=== PATIENT | female | born 1960 | race Caucasian/White ===

== ENCOUNTER 2017-10-03 08:22 | Emergency (ER) | payer MEDICAID ==
[~2017-10-03] VITALS: Ht 165.1 cm; Wt 75.0 kg
[~2017-10-03 08:22] MED LIST: CIPR-9 PO; OMEP20TA93 PO; PRED1SUS EACH EYE; REFRDRO EACH EYE
[2017-10-03 08:23] VITALS: BP 145/77; PULSE 70; RESP 16; TEMP 97.7; O2SAT 100
--- NOTE | 2017-10-03 09:22 | PD ---
HPI Chief Complaint: Abdominal Pain Time Seen by Provider: 08:57 Travel History International Travel<30 days: No Contact w/Intl Traveler<30days: No Traveled to known affect area: No History of Present Illness HPI 56yo F presents to the ED with c/o left lower abdominal pain since yesterday. Said it is nonradiating and sharp. Also noticed redness around umbilicus. Denies any fever, chest pain, sob, n/v, dysuria, hematuria, diarrhea, focal weakness or numbness. Pt has history of hysterectomy and cholecystectomy. PFSH Past Medical History Diabetes: No Past Surgical History Cholecystectomy: Yes Hysterectomy: Yes Tonsillectomy: Yes Social History Alcohol Use: No Tobacco Use: No Substance Use: No Allergies-Medications (Allergen,Severity, Reaction): Coded Allergies: No Known Allergies (Unverified Adverse Reaction, Unknown, 10/03/17) Reported Meds & Prescriptions Reported Meds & Active Scripts Active Reported Pred Forte Opth 1% (Prednisolone Acetate Opth 1%) 1% Susp 1 Drop EACH EYE DAILY Omeprazole 20 Mg Tab 20 Mg PO DAILY Refresh Opth Drops (Polyvinyl Alcohol-Povidone Opth Drops) 1.4-0.6% Drops 1-2 Drop EACH EYE Q6HR PRN Review of Systems Except as stated in HPI: all other systems reviewed are Neg Physical Exam Narrative GENERAL: 56yo F in mild distress. SKIN: Focused skin assessment warm/dry. HEAD: Atraumatic. Normocephalic. EYES: Pupils equal and round. No scleral icterus. No injection or drainage. CARDIOVASCULAR: Regular rate and rhythm. No murmur appreciated. RESPIRATORY: No accessory muscle use. Clear to auscultation. Breath sounds equal bilaterally. GASTROINTESTINAL: Abdomen soft, +TTP LLQ. No rebound tenderness or guarding. + erythema umbilicus. No fluctuance. MUSCULOSKELETAL: No obvious deformities. No clubbing. No cyanosis. No edema. NEUROLOGICAL: Awake and alert. No obvious cranial nerve deficits. Motor grossly within normal limits. Normal speech. PSYCHIATRIC: Appropriate mood and affect; insight and judgment normal. Data Data Last Documented VS Vital Signs Date Time Temp Pulse Resp B/P (MAP) Pulse Ox O2 Delivery O2 Flow Rate FiO2 10/03/17 08:23 97.7 70 16 145/77 (99) 100 Room Air Orders Orders Complete Blood Count With Diff (10/03/17 09:01) Comprehensive Metabolic Panel (10/03/17 09:01) Lipase (10/03/17 09:01) Prothrombin Time / Inr (Pt) (10/03/17 09:) Act Partial Throm Time (Ptt) (10/03/17 09:) Urinalysis - C+S If Indicated (10/03/17 09:01) Ct Abd/Pel W/O Iv Contrast (10/03/17 09:01) Morphine Inj (Morphine Inj) (10/03/17 11:30) Labs Laboratory Tests Test 10/03/17 09:25 10/03/17 09:29 White Blood Count 8.8 TH/MM3 Red Blood Count 4.40 MIL/MM3 Hemoglobin 13.9 GM/DL Hematocrit 40.5 % Mean Corpuscular Volume 92.2 FL Mean Corpuscular Hemoglobin 31.5 PG Mean Corpuscular Hemoglobin Concent 34.2 % Red Cell Distribution Width 13.5 % Platelet Count 135 TH/MM3 Mean Platelet Volume 8.2 FL Neutrophils (%) (Auto) 75.3 % Lymphocytes (%) (Auto) 18.0 % Monocytes (%) (Auto) 4.9 % Eosinophils (%) (Auto) 1.3 % Basophils (%) (Auto) 0.5 % Neutrophils # (Auto) 6.6 TH/MM3 Lymphocytes # (Auto) 1.6 TH/MM3 Monocytes # (Auto) 0.4 TH/MM3 Eosinophils # (Auto) 0.1 TH/MM3 Basophils # (Auto) 0.0 TH/MM3 CBC Comment DIFF FINAL Differential Comment Prothrombin Time 10.2 SEC Prothromb Time International Ratio 1.0 RATIO Activated Partial Thromboplast Time 27.7 SEC Blood Urea Nitrogen 15 MG/DL Creatinine 0.90 MG/DL Random Glucose 88 MG/DL Total Protein 8.0 GM/DL Albumin 4.3 GM/DL Calcium Level 8.8 MG/DL Alkaline Phosphatase 147 U/L Aspartate Amino Transf (AST/SGOT) 23 U/L Alanine Aminotransferase (ALT/SGPT) 33 U/L Total Bilirubin 0.7 MG/DL Sodium Level 138 MEQ/L Potassium Level 3.9 MEQ/L Chloride Level 105 MEQ/L Carbon Dioxide Level 24.8 MEQ/L Anion Gap 8 MEQ/L Estimat Glomerular Filtration Rate 64 ML/MIN Lipase 189 U/L Urine Color YELLOW Urine Turbidity CLEAR Urine pH 6.0 Urine Specific [place] 1.017 Urine Protein NEG mg/dL Urine Glucose (UA) NEG mg/dL Urine Ketones NEG mg/dL Urine Occult Blood NEG Urine Nitrite NEG Urine Bilirubin NEG Urine Urobilinogen LESS THAN 2.0 MG/DL Urine Leukocyte Esterase NEG Urine RBC 1 /hpf Urine WBC 1 /hpf Urine Squamous Epithelial Cells 6 /hpf Urine Bacteria RARE /hpf Urine Mucus FEW /lpf Microscopic Urinalysis Comment CULT NOT INDICATED MDM Medical Decision Making Medical Screen Exam Complete: Yes Emergency Medical Condition: Yes Differential Diagnosis Diverticulitis vs. cellulitis vs. abscess Narrative Course 56yo F wit abdominal pain. Labs reviewed, no leukocytosis. H/H normal. Lipase normal. CMP unremarkable. UA showed rare bacteria. Culture not indicated. CT a/p showed very small fat containing periumbilical hernia with fat stranding consistent with strangulated umbilical hernia. Pt has some erythema around umbilicus that appears to be mild cellulitis. No hernia appreciated on exam. Pt did have about 20cc of contrast before her vein blew so that is why there is residual contrast in kidney and bladder. Small bowel and colon negative. Pt is well appearing and pain improved after morphine. Pt will follow up with primary care physician as outpatient. She has no vomiting and tolerating PO. Diagnosis Primary Impression: Cellulitis Qualified Codes: L03.311 - Cellulitis of abdominal wall Patient Instructions: General Instructions Departure Forms: Tests/Procedures Additional Instructions: Please follow up with your primary care physician in 3-7 days. Return to the ED if symptoms worsen. Med/Other Pt SpecificInfo: Prescription(s) given Scripts Hydrocodone-Acetaminophen (Hydrocodone-Acetaminophen) 5-325 mg Tab 1 TAB PO Q6H Y for PAIN, #7 TAB 0 Refills Prov: Whitney Farah 10/03/17 Cephalexin (Keflex) 500 Mg Cap 500 MG PO Q12H for Infection for 7 Days, #14 CAP 0 Refills Prov: Whitney Farah 10/03/17 Disposition: 01 DISCHARGE HOME Condition: Stable Whitney Farah Oct 03, 2017 09:22
[2017-10-03 09:40] LABS: AUTOMATED NEUTROPHIL # 6.6 TH/MM3 (1.8-7.7); BASOPHIL % 0.5 % (0.0-2.0); EOSINOPHIL # 0.1 TH/MM3 (0-0.4); EOSINOPHIL % 1.3 % (0.0-4.0); HEMATOCRIT 40.5 % (35.0-46.0); HEMOGLOBIN 13.9 GM/DL (11.6-15.3); LYMPHOCYTE # 1.6 TH/MM3 (1.0-4.8); MEAN CELL VOLUME 92.2 FL (80.0-100.0); MEAN CORPUSCULAR HEMOGLOBIN 31.5 PG (27.0-34.0); MEAN CORPUSCULAR HGB CONC 34.2 % (32.0-36.0); MEAN PLATELET VOLUME 8.2 FL (7.0-11.0); MONO % 4.9 % (0.0-8.0); MONOCYTE # 0.4 TH/MM3 (0-0.9); NEUT % 75.3 % (16.0-70.0); PLATELET COUNT 135 TH/MM3 (150-450); RED CELL DISTRIBUTION WIDTH 13.5 % (11.6-17.2); WHITE BLOOD COUNT 8.8 TH/MM3 (4.0-11.0)
[2017-10-03 09:46] LABS: BACTERIA, URINE RARE /hpf; BILIRUBIN, URINE NEG (NEG); BLOOD, URINE NEG (NEG); GLUCOSE,URINE NEG (NEG); KETONE, URINE NEG (NEG); MUCUS URINE FEW /lpf (OCC); NITRITE,URINE NEG (NEG); SQUAMOUS EPITHELIAL CELL URINE 6 /hpf (0-5); URINE COLOR YELLOW (YELLW/STRAW); URINE LEUKOCYTE ESTERASE NEG (NEG)
[2017-10-03 09:50] LABS: PROTHROMBIN TIME - PATIENT 10.2 SEC (9.8-11.6)
[2017-10-03 10:01] LABS: ALBUMIN 4.3 GM/DL (3.4-5.0); AST (GOT) 23 U/L (15-37); BICARBONATE 24.8 MEQ/L (21.0-32.0); BLOOD UREA NITROGEN 15 MG/DL (7-18); CALCIUM 8.8 MG/DL (8.5-10.1); CHLORIDE 105 MEQ/L (98-107); GLOMERULAR FILTRATION RATE 64 ML/MIN (>89); GLUCOSE,RANDOM 88 MG/DL (74-106); LIPASE 189 U/L (73-393); SODIUM (NA) 138 MEQ/L (136-145)
[2017-10-03 10:02] LABS: ALT (GPT) 33 U/L (10-53)
[2017-10-03 10:05] LABS: ALKALINE PHOSPHATASE 147 U/L (45-117); TOTAL BILIRUBIN ADULT 0.7 MG/DL (0.2-1.0)
--- NOTE | 2017-10-03 10:41 | RADRPT ---
EXAM DATE/TIME: 10/03/2017 09:48 [facility] COMPARISON: No previous studies available for comparison. INDICATIONS : Left lower quadrant and periumbilical pain with redness. ORAL CONTRAST: No oral contrast ingested. RADIATION DOSE: 9.47 CTDIvol (mGy) MEDICAL HISTORY : None SURGICAL HISTORY : Cholecystectomy. Hysterectomy. ENCOUNTER: Initial ACUITY: 1 day PAIN SCALE: 10/10 LOCATION: Left lower quadrant TECHNIQUE: Volumetric scanning of the abdomen and pelvis was performed. Using automated exposure control and ad justment of the mA and/or kV according to patient size, radiation dose was kept as low as reasonably achievable to obtain optimal diagnostic quality images. DICOM format image data is available electro nically for review and comparison. FINDINGS: LOWER LUNGS: The visualized lower lungs are clear. LIVER: Mild diffuse decreased hepatic density with mild hepatomegaly. No intrahepatic ductal dilatation or g ross mass. Gallbladder is surgically absent. SPLEEN: Spleen is borderline in size but otherwise unremarkable. PANCREAS: Within normal limits. KIDNEYS: Kidneys are symmetrical in size. There is contrast noted in the renal collecting systems and proximal ureter likely from recent administration of IV contrast. No hydronephrosis or significant contour de forming renal abnormality. ADRENAL GLANDS: Within normal limits. VASCULAR: There is no aortic aneurysm. BOWEL/MESENTERY: The stomach, small bowel, and colon demonstrate no acute abnormality. Small amount of probable oral contrast in the sigmoid colon. There is no free intraperitoneal air or fluid. ABDOMINAL WALL: Small periumbilical fat containing hernia with subtle stranding RETROPERITONEUM: There is no lymphadenopathy. BLADDER: Contrast noted in the bladder which is otherwise unremarkable by CT. REPRODUCTIVE: Uterus is surgically absent. INGUINAL: Subcentimeter left inguinal nodes. MUSCULOSKELETAL: Within normal limits for patient age. CONCLUSION: 1. Very small fat containing periumbilical hernia with fat stranding consistent with strangulated umb ilical hernia. 2. Residual contrast in the kidneys and bladder likely due to recent contrast administration. If cont rast administration was more than 48 hours ago, consider evaluation for contrast induced nephropathy. 3. Ancillary findings include hepatic steatosis, status post cholecystectomy and hysterectomy, and li zulema reactive left inguinal nodes. Paramjit Aj MD on October 03, 2017 at 10:29 Board Certified Radiologist. This report was verified electronically.
[2017-10-03] MEDS ORDERED: MORPHINE SULFATE 4 MG/ML INJ IM ONE (11:30)
[2017-10-03] MEDS ORDERED: HYDR-3516 PO (11:49)
[2017-10-03] MEDS ORDERED: CEPH-460 PO (11:49)
[2017-10-03] MEDS ORDERED: MORPHINE SULFATE 2 MG/ML INJ IM ONE (12:30)
== END 2017-10-03 13:00 | disposition home or self-care (01) ==
LOC: NEPC 08:22
DX: L03.311 Cellulitis of abdominal wall (principal)
CPT/HCPCS: 74176; 80053; 81001; 83690; 85025; 85610; 85730; 99284